=== PATIENT | female | born 1975 | race Hispanic/Latino ===

== ENCOUNTER 2019-05-11 09:15 | Outpatient (CLI) | payer BC ==
--- NOTE | 2019-05-11 14:45 | Mammography Report ---
STEREOTACTIC PERCUTANEOUS NEEDLE BIOPSY RIGHT BREAST WITH CLIP PLACEMENT INDICATION: CALCIFICATIONS RIGHT BREAST. COMPARISON: Recent mammograms from [facility]. FINDINGS: The procedure was explained to the patient and all questions answered. Informed consent was obtained. The skin was marked with a felt tip marker and a timeout was called. The previously described right u pper outer anterior depth calcifications were targeted with stereotactic guidance. Using 1% lidocaine for superficial anesthesia and 2% lidocaine with epinephrine for deep anesthesia, stereotactic biops y was performed from a CC from above approach. The biopsy was performed through a small dermatotomy u sing an 8 gauge Mammotome vacuum-assisted biopsy device. 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 A localizer clip was placed at the biopsy site and satisfactory deployment was confirmed with an image. The probe was rem mercedes and hemostasis was achieved with pressure to the site. A sterile dressing was applied. The patie nt tolerated the procedure well and there were no apparent complications. A two-view mammogram demonstrated removal of most if not all of the calcifications and concordant cli p placement at the biopsy site. The patient left the department in good condition and was given instr uctions for wound care and follow-up. IMPRESSION: 1. Successful uncomplicated stereotactic biopsy of the right breast with placement of localizer clip. . Signer Name: Carson Coburn MD Signed: 05/11/2019 2:41 PM Workstation Name: [id number]
--- NOTE | 2019-05-11 14:47 | Mammography Report ---
RIGHT DIGITAL DIAGNOSTIC MAMMOGRAM CLINICAL: For clip placement after stereotactic biopsy. COMPARISON: A recent mammogram from [facility] FINDINGS: Most if not all of the calcifications have been removed and there is satisfactory deploymen t of a localizer clip at the site of biopsy. No significant postbiopsy hematoma. IMPRESSION: Concordant clip deployment with removal of most if not all of the targeted calcifications . Signer Name: Carson Coburn MD Signed: 05/11/2019 2:43 PM Workstation Name: [id number]
== END 2019-05-11 09:16 | disposition home or self-care (01) ==
LOC: SPVWC 09:15
PROVIDERS: ATTEND Surgery
DX: R92.0 Mammographic microcalcification found on diagnostic imaging of breast (principal)
CPT/HCPCS: 19081; 77065; 88305; A4648; 88342